=== PATIENT | male | born 1970 ===

== ENCOUNTER 2017-05-28 11:33 | Emergency (ER) | payer BC ==
[2017-05-28 11:33] VITALS: BMI 29.0
[2017-05-28 11:42] VITALS: TEMP 97.9
--- NOTE | 2017-05-28 13:03 | ED PDOC ---
HPI: Chest Pain Time Seen by Provider: 05/28/17 12:10 Chief Complaint (Nursing): Chest Pain Chief Complaint (Provider): Chest Pain History Per: Patient History/Exam Limitations: no limitations Onset/Duration Of Symptoms: Days (x1) Current Symptoms Are (Timing): Still Present Associated Symptoms: Other (lightheaded and dizzy) Additional Complaint(s): Preston Fournier is a 46 year old male, with a past medical history of of back surgery, who was brought to the emergency department for chest pain associated with lightheadedness, and dizziness onset today. During the stress test patient got dizzy, lightheaded, weak and began c/o of chest pain. Patient was apparently given nitro but his blood pressure dropped right after. No further medical complaints. PMD: Nasim Anne Past Medical History Reviewed: Historical Data, Nursing Documentation, Vital Signs Vital Signs: Last Vital Signs Temp 97.9 F 05/28/17 11:41 Pulse 66 05/28/17 13:09 Resp 16 05/28/17 13:09 BP 106/57 L 05/28/17 13:09 Pulse Ox 100 05/28/17 14:41 - Medical History PMH: Anxiety, Hypercholesterolemia, Migraine - Family History Family History: States: Unknown Family Hx - Social History Current smoker - smoking cessation education provided: No Alcohol: None Drugs: Denies - Immunization History Hx Tetanus Toxoid Vaccination: No Hx Influenza Vaccination: No Hx Pneumococcal Vaccination: No - Home Medications Home Medications: Ambulatory Orders Medication Instructions Recorded Calcium Carbonate/Vitamin D3 1 tab PO BID 05/28/17 [Calcium 500-Vit D3 400 Tablet] Ergocalciferol (Vitamin D2) 50,000 unit PO QWK 05/28/17 [Vitamin D2] [id number]-1-[id number] Ethyl Esters 1 GM 1 gm PO QID 05/28/17 [Lovaza] Pregabalin [Lyrica] 150 mg PO BID 05/28/17 - Allergies Allergies/Adverse Reactions: Allergies Allergy/AdvReac Type Severity Reaction Status Date / Time acetaminophen [From Percocet] Allergy NAUSEA Verified 05/28/17 11:37 oxycodone HCl [From Percocet] Allergy NAUSEA Verified 05/28/17 11:37 Review of Systems ROS Statement: Except As Marked, All Systems Reviewed And Found Negative Constitutional: Positive for: Weakness Cardiovascular: Positive for: Chest Pain, Light Headedness Neurological: Positive for: Dizziness Physical Exam - Reviewed Nursing Documentation Reviewed: Yes Vital Signs Reviewed: Yes - Physical Exam Appears: Positive for: Non-toxic, Uncomfortable Head Exam: Positive for: ATRAUMATIC, NORMAL INSPECTION, NORMOCEPHALIC Skin: Positive for: Normal Color, Warm, Dry Eye Exam: Positive for: EOMI, Normal appearance, PERRL Neck: Positive for: Normal, Painless ROM, Supple Cardiovascular/Chest: Positive for: Regular Rate, Rhythm. Negative for: Murmur Respiratory: Positive for: Normal Breath Sounds. Negative for: Respiratory Distress Gastrointestinal/Abdominal: Positive for: Normal Exam, Bowel Sounds, Soft. Negative for: Tenderness, Guarding, Rebound Back: Positive for: Normal Inspection. Negative for: L CVA Tenderness, R CVA Tenderness Extremity: Positive for: Normal ROM. Negative for: Pedal Edema, Deformity, Swelling Neurologic/Psych: Positive for: Alert, Oriented. Negative for: Motor/Sensory Deficits - Laboratory Results Result Diagrams: 05/28/17 11:40 05/28/17 11:40 - ECG ECG Rhythm: Positive for: Left Bundle Branch Block O2 Sat by Pulse Oximetry: 100 (RA) Pulse Ox Interpretation: Normal Medical Decision Making Medical Decision Making: Initial Impression: Chest Pain. rule out: ACS. Initial Plan: --Comp Metabolic Panel --Troponin I --Cardiology consult routine --CBC w/ differential --PTT --Chest portable [RAD] --Xanax 0.5 mg PO --reevaluation 1222 -Called Dr. Anne 1225 -Dr. Anne accepting patient and wants to give Xanax 1304 -Spoke to Dr. Reyes, who wanted to stop giving the Xanax. According to him, patient is being transferred to [facility] for cath at 1600 Scribe Attestation: Documented by Khris Zhong, acting as a scribe for Dung Lucas MD Provider Scribe Attestation: All medical record entries made by the Scribe were at my direction and personally dictated by me. I have reviewed the chart and agree that the record accurately reflects my personal performance of the history, physical exam, medical decision making, and the department course for this patient. I have also personally directed, reviewed, and agree with the discharge instructions and disposition. Time: 14:00 Gwen agreed to transfer to [place]. Dr. Wilils will be his doctor there. Scribe Attestation: Documented by Caleb Craig acting as a scribe for Dung Lucas MD. Scribe Attestation: All medical record entries made by the Scribe were at my direction and personally dictated by me. I have reviewed the chart and agree that the record accurately reflects my personal performance of the history, physical exam, medical decision making, and the department course for this patient. I have also personally directed, reviewed, and agree with the discharge instructions and disposition.
[2017-05-28 13:04] LABS: ALB/GLOB RATIO 1.3 (1.0-2.1); ALKALINE PHOSPHATASE 72 U/L (38-126); ALT/SGPT 48 U/L (21-72); AST/SGOT 26 U/L (17-59); BILIRUBIN,TOTAL 1.2 mg/dl (0.2-1.3); BLOOD UREA NITROGEN 13 mg/dl (9-20); CALCIUM 8.7 mg/dL (8.4-10.2); CARBON DIOXIDE 25 mmol/L (22-30); CHLORIDE 106 mmol/L (98-107); GFR AFRICAN-AMERICAN > 60; GLUCOSE,RANDOM 85 mg/dL (75-110); POTASSIUM 3.8 MMOL/L (3.6-5.0); SODIUM 142 mmol/l (132-148); TOTAL PROTEIN 7.7 G/DL (6.3-8.2)
[2017-05-28 13:07] LABS: BASO # 0.1 K/uL (0.0-0.2); BASO % 0.7 % (0.0-2.0); EOS # 0.2 K/uL (0.0-0.7); EOS % 1.8 % (0.0-4.0); HEMATOCRIT 42.1 % (35.0-51.0); LYMPH # 2.1 K/uL (1.0-4.3); LYMPH % 24.1 % (20.0-40.0); MEAN CELL VOLUME 89.8 fl (80.0-94.0); MEAN CORPUSCULAR HGB CONC 34.5 g/dL (33.0-37.0); MEAN PLATELET VOLUME 10.2 fl (7.2-11.7); MONO # 0.7 K/uL (0.0-0.8); MONO % 8.6 % (0.0-10.0); NEUT # 5.5 K/uL (1.8-7.0); NEUT % 64.8 % (50.0-75.0); NRBC % 0.1 % (0.0-0.0); RED CELL DISTRIBUTION WIDTH 19.2 % (11.5-14.5); WHITE BLOOD COUNT 8.5 K/uL (4.8-10.8)
[2017-05-28 13:10] VITALS: PULSE 66
--- NOTE | 2017-05-28 14:48 | RAD ---
HISTORY: chest pain COMPARISON: No prior. FINDINGS: LUNGS: No active pulmonary disease. PLEURA: No significant pleural effusion identified, no pneumothorax apparent. CARDIOVASCULAR: Normal. OSSEOUS STRUCTURES: No significant abnormalities. VISUALIZED UPPER ABDOMEN: Normal. OTHER FINDINGS: None. IMPRESSION: No acute cardiopulmonary disease appreciated.
[2017-05-28 15:51] VITALS: BP 102/63; RESP 18; O2SAT 98
== END 2017-05-28 14:50 | disposition short-term general hospital (02) ==
LOC: H.ER 11:33 → H.ERHOLD 12:23 → UNDOADMOB 12:23 → H.ER 14:50
DX: R07.89 Other chest pain (principal); E78.00 Pure hypercholesterolemia, unspecified; F41.9 Anxiety disorder, unspecified; Z88.5 Allergy status to narcotic agent; R42 Dizziness and giddiness

== ENCOUNTER 2017-08-16 13:24 | Emergency (ER) | payer BC ==
[2017-08-16 13:24] VITALS: BMI 29.0
[2017-08-16 13:39] VITALS: BP 111/71; PULSE 92; RESP 18; TEMP 99.3; O2SAT 96
--- NOTE | 2017-08-16 13:59 | ED PDOC ---
HPI: General Adult Time Seen by Provider: 08/16/17 13:46 Chief Complaint (Nursing): Flu-like Symptoms History Per: Patient Onset/Duration Of Symptoms: Days (2) Current Symptoms Are (Timing): Still Present Severity: Moderate Additional Complaint(s): Fever cough sore throat and body aches x 2 days. No SOB. Past Medical History Vital Signs: Last Vital Signs Temp 99.3 F 08/16/17 13:36 Pulse 92 H 08/16/17 13:36 Resp 18 08/16/17 13:36 BP 111/71 08/16/17 13:36 Pulse Ox 96 08/16/17 13:36 - Medical History PMH: Anxiety, Hypercholesterolemia, Migraine - Family History Family History: States: Unknown Family Hx - Immunization History Hx Tetanus Toxoid Vaccination: No Hx Influenza Vaccination: No Hx Pneumococcal Vaccination: No - Home Medications Home Medications: Ambulatory Orders Medication Instructions Recorded Calcium Carbonate/Vitamin D3 1 tab PO BID 05/28/17 [Calcium 500-Vit D3 400 Tablet] Ergocalciferol (Vitamin D2) 50,000 unit PO QWK 05/28/17 [Vitamin D2] Hmqzv-3-Xkyk Ethyl Esters 1 GM 1 gm PO QID 05/28/17 [Lovaza] Pregabalin [Lyrica] 150 mg PO BID 05/28/17 Albuterol HFA [Ventolin HFA 90 2 puff IH Q4H #1 puff 08/16/17 mcg/actuation (8 g)] Oseltamivir [Tamiflu] 75 mg PO BID #10 cap 08/16/17 - Allergies Allergies/Adverse Reactions: Allergies Allergy/AdvReac Type Severity Reaction Status Date / Time acetaminophen [From Percocet] Allergy NAUSEA Verified 05/28/17 11:37 oxycodone HCl [From Percocet] Allergy NAUSEA Verified 05/28/17 11:37 Review of Systems Constitutional: Positive for: Fever ENT: Positive for: Throat Pain Respiratory: Positive for: Cough Physical Exam - Physical Exam Appears: Positive for: Non-toxic, No Acute Distress Skin: Positive for: Normal Color, Warm, DRY ENT: Negative for: Tonsillar Exudate, Tonsillar Swelling Cardiovascular/Chest: Positive for: Regular Rate, Rhythm Respiratory: Positive for: Normal Breath Sounds. Negative for: Wheezing, Respiratory Distress Extremity: Negative for: Pedal Edema, Calf Tenderness, Swelling - ECG O2 Sat by Pulse Oximetry: 96 Disposition - Clinical Impression Clinical Impression: Influenza-like symptoms - Patient ED Disposition Is Patient to be Admitted: No - Disposition Referrals: Nasim Anne MD [Staff Provider] - Disposition: Routine/Home Disposition Time: 14:00 Condition: FAIR Prescriptions: Albuterol HFA [Ventolin HFA 90 mcg/actuation (8 g)] 2 puff IH Q4H #1 puff Oseltamivir [Tamiflu] 75 mg PO BID #10 cap Instructions: Flu, Adult (DC)
== END 2017-08-16 15:26 | disposition home or self-care (01) ==
LOC: H.ER 13:24
DX: J11.1 Influenza due to unidentified influenza virus with other respiratory manifestations (principal)

== ENCOUNTER 2017-08-21 15:01 | Observation (INO) | payer BC ==
[2017-08-21 15:01] VITALS: BMI 29.0
--- NOTE | 2017-08-21 16:02 | ED PDOC ---
HPI: Chest Pain Chief Complaint (Nursing): Chest Pain Chief Complaint (Provider): chest pain History Per: Patient History/Exam Limitations: no limitations Onset/Duration Of Symptoms: Days (3) Current Symptoms Are (Timing): Still Present Pain Scale Rating Of: 8 Quality: Pressure Associated Symptoms: Dyspnea Modifying Factors: None Exacerbating Factors: Deep Breathing Alleviating Factors: None Additional Complaint(s): 46 yo ,m, PMhx/o HLD, migraine, back surgery, anxiety, "Cardiac bridge" as per patient is brought to ED by ambulance c/o chest pain started 3 days ago, central pressure like, 8/9 intensity, not radiated, worse on deep inspiration, not alleviated factors, associated with persistent dry cough for the last 5 days , and SOB today. He denies fever, myalgia, chills, nausea,diarrhea, orthopnea, PND, pedal edema. . Reports 1 non- bloddy vomiting today. Pt was evaluated in ED 5 days ago for flu-like symptoms and discharged home with tamiflu and Ventolin. He reports that he finished treatment today with tamiflu, but for worsening of symptoms he went to see his PMD Dr Anne. He was given Aspirin 4 tabs on the office and was sent to Ed by ambulance. On evaluation pt with reproducible chest pain and persistent cough. O2 sat 98 PMD: Dr Anne - Risk Factors PE Risk Factors: Neg: Extremity Immobilization/Fx Past Medical History Vital Signs: Last Vital Signs Temp 97.7 F 08/21/17 15:04 Pulse 71 08/21/17 19:44 Resp 16 08/21/17 19:44 BP 112/72 08/21/17 19:44 Pulse Ox 98 08/21/17 20:02 - Medical History PMH: Anxiety, Hypercholesterolemia, Migraine - Family History Family History: States: Unknown Family Hx - Social History Current smoker - smoking cessation education provided: No Alcohol: None Drugs: Denies - Immunization History Hx Tetanus Toxoid Vaccination: No Hx Influenza Vaccination: No Hx Pneumococcal Vaccination: No - Home Medications Home Medications: Ambulatory Orders Medication Instructions Recorded Calcium Carbonate/Vitamin D3 1 tab PO BID 05/28/17 [Calcium 500-Vit D3 400 Tablet] Ergocalciferol (Vitamin D2) 50,000 unit PO QWK 05/28/17 [Vitamin D2] Mgelv-8-Nbzc Ethyl Esters 1 GM 1 gm PO QID 05/28/17 [Lovaza] Pregabalin [Lyrica] 150 mg PO BID 05/28/17 Albuterol HFA [Ventolin HFA 90 2 puff IH Q4H #1 puff 08/16/17 mcg/actuation (8 g)] Aspirin [Ecotrin] 81 mg PO DAILY 08/21/17 - Allergies Allergies/Adverse Reactions: Allergies Allergy/AdvReac Type Severity Reaction Status Date / Time oxycodone HCl [From Percocet] Allergy NAUSEA Verified 08/21/17 15:10 JACOBY Risk Score for UA/NSTEMI - JACOBY Risk Score Age > 64: NO 3 or more CAD Risk Factors: NO Known CAD (Stenosis greater than 50%): NO Aspirin use in past 7 days: YES Severe Angina: NO EKG ST changes greater than 0.5mm: NO Positive Cardiac Marker: NO JACOBY Score: 1 Risk %: 5% Curb-65 Severity Score - CURB-65 Severity Score Confusion: No Respiratory Rate greater than/equal to 30: No Systolic BP <90 or Diastolic BP less than/equal 60mmHg: No Age >64: No Curb-65 Score: 0 Percentage 30-day mortality: 0.6% Wells Criteria for PE - Wells Criteria for Pulmonary Embolism Clinical Signs and Symptoms of DVT: No P.E is #1 Diagnosis, or Equally Likely: No Heart Rate >100: No Immobilization at least 3 days;Surgery previous 4 weeks: No Previous, objectively diagnosed PE or DVT: No Hemoptysis: No Malignancy w/treatment within 6 months, or palliative: No Total Score: 0 Review of Systems Cardiovascular: Positive for: Chest Pain Respiratory: Positive for: Cough, Shortness of Breath. Negative for: Wheezing Gastrointestinal: Negative for: Nausea, Vomiting Physical Exam - Physical Exam Appears: Positive for: No Acute Distress Head Exam: Positive for: ATRAUMATIC, NORMOCEPHALIC Skin: Positive for: Normal Color Cardiovascular/Chest: Positive for: Regular Rate, Rhythm Respiratory: Positive for: Normal Breath Sounds. Negative for: Crackles, Rales , Rhonchi, Wheezing, Plerual Rub Gastrointestinal/Abdominal: Positive for: Soft. Negative for: Tenderness, Distended, Guarding, Rebound Extremity: Positive for: Normal ROM. Negative for: Tenderness, Pedal Edema Neurologic/Psych: Positive for: Alert, Oriented - Laboratory Results Result Diagrams: 08/21/17 16:35 08/21/17 16:35 - ECG O2 Sat by Pulse Oximetry: 98 Medical Decision Making Medical Decision Making: initial Impression Chest pain reproducible. Costochondritis Influenza Differential ACS, Unstable angina, PE, Acute pericarditis. Plan CBC, CMP, troponin Aspirin given 4 tab (320 mg before coming hospital) EKG: showed LBBB. patient had LBBB showed in myocardial perfusion scan 05/2017, possible chronic. Myocardial perfusion scan 05/2017 reports: Large sized sev intensity partially reversible anteroseptal defect accompanied with new LBBB Coronary cath 05/2017 neg CXR Toradol 30 mg IV 19:00 Patient reports that pain has not resolved complete. Pt has allergy to Percocet labs reviewed, troponin I neg, CXR no active pulmonar disease. Disposition - Clinical Impression Clinical Impression: Acute chest pain - Patient ED Disposition Is Patient to be Admitted: Yes - Disposition Disposition Time: 19:40 Condition: FAIR Forms: [employer] (Dominican)
[2017-08-21 16:52] LABS: BASO # 0.1 K/uL (0.0-0.2); EOS # 0.2 K/uL (0.0-0.7); EOS % 2.8 % (0.0-4.0); HEMOGLOBIN 13.9 g/dL (12.0-18.0); LYMPH # 2.4 K/uL (1.0-4.3); MEAN CELL VOLUME 87.9 fl (80.0-94.0); MEAN CORPUSCULAR HEMOGLOBIN 32.3 pg (27.0-31.0); MEAN CORPUSCULAR HGB CONC 36.8 g/dL (33.0-37.0); MEAN PLATELET VOLUME 9.3 fl (7.2-11.7); MONO # 0.8 K/uL (0.0-0.8); MONO % 9.6 % (0.0-10.0); NEUT % 58.6 % (50.0-75.0); NRBC % 0.1 % (0.0-0.0); RBC 4.3 Mil/uL (4.40-5.90); WHITE BLOOD COUNT 8.6 K/uL (4.8-10.8)
[2017-08-21 17:01] LABS: ALB/GLOB RATIO 1.1 (1.0-2.1); ALBUMIN 4.2 g/dL (3.5-5.0); CALCIUM 8.8 mg/dL (8.4-10.2); GFR AFRICAN-AMERICAN > 60; GFR NON-AFRICAN AMERICAN > 60
[2017-08-21 17:04] LABS: INR 1.1 (0.9-1.2); PARTIAL THROMBOPLASTIN TIME 25.2 Seconds (25.6-37.1); PROTHROMBIN TIME 11.9 Seconds (9.8-13.1)
[2017-08-21 17:10] LABS: ALT/SGPT 32 U/L (21-72); AST/SGOT 35 U/L (17-59); BLOOD UREA NITROGEN 18 mg/dl (9-20)
--- NOTE | 2017-08-21 18:18 | RAD ---
HISTORY: chest pain. SOB COMPARISON: Chest x-ray performed 05/28/17 TECHNIQUE: Chest PA and lateral FINDINGS: Examination limited by habitus. LUNGS: No focal consolidation. Please note that chest x-ray has limited sensitivity for the detection of pulmonary masses. PLEURA: No significant pleural effusion identified. No definite pneumothorax . CARDIOVASCULAR: Heart size appears top-normal. OSSEOUS STRUCTURES: No acute osseous abnormality identified. VISUALIZED UPPER ABDOMEN: Right upper quadrant surgical clips. OTHER FINDINGS: None. IMPRESSION: No acute findings identified. See above.
[2017-08-21] MEDS ORDERED: Albuterol-Ipratrop 3 mg / 0.5 (3 ml) UD INH STA (19:38)
[2017-08-21] MEDS ORDERED: Albuterol-Ipratrop 3 mg / 0.5 (3 ml) UD ONE (20:04)
[2017-08-22] MEDS: Omega-3-Acid Ethyl Esters 1 GM Cap PO SCH ×2 (08:33→16:52)
[2017-08-22] MEDS: Enoxaparin 40 mg Syringe SC SCH (08:33)
[2017-08-22] MEDS: Albuterol HFA 90 mcg/actuation (8 g) IH PRN ×2 (08:35→22:29)
[2017-08-22] MEDS: guaiFENesin-Codeine 100-10mg/5ml Syrup (5 ml) UD PO PRN ×2 (08:39→21:38)
--- NOTE | 2017-08-22 11:34 | CT ---
PROCEDURE: CT Chest without contrast HISTORY: cough pain COMPARISON: None. TECHNIQUE: Contiguous axial images were obtained through the chest without intravenous contrast enhancement. Sagittal and coronal reconstructions were performed. Radiation dose (DLP): 557.32 mGy-cm. This CT exam was performed using one or more of the following dose reduction techniques: Automated exposure control, adjustment of the mA and/or kV according to patient size, and/or use of iterative reconstruction technique. FINDINGS: LUNGS: Clear lungs. Visualized airway clear. MEDIASTINUM: Unremarkable thoracic aorta. No aneurysm. Normal sized heart. Main pulmonary artery unremarkable. No vascular congestion. No lymphadenopathy. PLEURA: No pleural fluid. No pneumothorax. BONES: No fracture. No destructive lesion. UPPER ABDOMEN: Mild splenomegaly. Status post cholecystectomy. OTHER FINDINGS: None. IMPRESSION: No pulmonary infiltrate. Mild splenomegaly. The remainder of the examination is unremarkable.
--- NOTE | 2017-08-22 13:20 | CP.PCM.HP ---
History of Present Illness - History of Present Illness History of Present Illness: 46 yo ,m, with hx of back surgery with chronic pain on lyrica. Patient c/o severe precordial pain. He recently had a comprehensive cardiac w/u. Few days before this admission he was treated for viral syndrome and bronchitis. His condition did not improve and he was transfer to ER for further evaluation On evaluation pt with reproducible chest pain and persistent cough. Present on Admission - Present on Admission Any Indicators Present on Admission: No Review of Systems - Constitutional Constitutional: Headache - EENT Eyes: As Per HPI - Cardiovascular Cardiovascular: Chest Pain - Respiratory Respiratory: Cough - Gastrointestinal Gastrointestinal: As Per HPI - Musculoskeletal Musculoskeletal: Myalgias - Integumentary Integumentary: As Per HPI - Neurological Neurological: As Per HPI - Psychiatric Psychiatric: Anxiety Past Patient History - Past Medical History & Family History Past Medical History?: Yes - Past Social History Smoking Status: Former Smoker - CARDIAC Hx Hypercholesterolemia: Yes - NEUROLOGICAL Hx Migraine: Yes - RENAL Hx Chronic Kidney Disease: No - ENDOCRINE/METABOLIC Hx Endocrine Disorders: No - HEMATOLOGICAL/ONCOLOGICAL Hx Blood Disorders: No - MUSCULOSKELETAL/RHEUMATOLOGICAL Hx Falls: No - GASTROINTESTINAL Hx Gastrointestinal Disorders: No - GENITOURINARY/GYNECOLOGICAL Hx Genitourinary Disorders: No - PSYCHIATRIC Hx Psychophysiologic Disorder: No Hx Substance Use: No - SURGICAL HISTORY Hx Surgeries: Yes Hx Cardiac Catheterization: Yes Other/Comment: left shoulder torn ligament & tendon surgery - ANESTHESIA Hx Anesthesia: Yes Hx Anesthesia Reactions: No Meds Allergies/Adverse Reactions: Allergies Allergy/AdvReac Type Severity Reaction Status Date / Time oxycodone HCl [From Percocet] Allergy NAUSEA Verified 08/21/17 15:10 Physical Exam - Constitutional Additional comments: anxious - Head Exam Head Exam: ATRAUMATIC, NORMAL INSPECTION, NORMOCEPHALIC - Eye Exam Eye Exam: Normal appearance - ENT Exam ENT Exam: Mucous Membranes Moist - Neck Exam Neck exam: Positive for: Full Rom - Respiratory Exam Respiratory Exam: Clear to Auscultation Bilateral Additional comments: reproducible CP at palpation of the costochondral area. - Cardiovascular Exam Cardiovascular Exam: REGULAR RHYTHM, +S1, +S2 - GI/Abdominal Exam GI & Abdominal Exam: Normal Bowel Sounds - Extremities Exam Extremities exam: Positive for: normal inspection - Neurological Exam Neurological exam: Alert, CN II-XII Intact, Normal Gait, Oriented x3, Reflexes Normal - Psychiatric Exam Psychiatric exam: Anxious - Skin Skin Exam: Normal Color Results - Vital Signs Recent Vital Signs: Last Vital Signs Temp 97.5 F L 08/22/17 11:43 Pulse 67 08/22/17 11:43 Resp 18 08/22/17 11:43 BP 111/73 08/22/17 11:43 Pulse Ox 95 08/22/17 11:43 - Labs Result Diagrams: 08/21/17 16:35 08/21/17 16:35 Labs: Laboratory Results - last 24 hr 08/21/17 08/21/17 08/21/17 16:35 16:35 16:35 WBC 8.6 RBC 4.30 L Hgb 13.9 Hct 37.8 MCV 87.9 MCH 32.3 H MCHC 36.8 RDW 19.0 H Plt Count 229 MPV 9.3 Neut % (Auto) 58.6 Lymph % (Auto) 28.0 Izard % (Auto) 9.6 Eos % (Auto) 2.8 Baso % (Auto) 1.0 Neut # (Auto) 5.0 Lymph # (Auto) 2.4 Izard # (Auto) 0.8 Eos # (Auto) 0.2 Baso # (Auto) 0.1 PT 11.9 INR 1.1 APTT 25.2 L Sodium 141 Potassium 4.1 Chloride 107 Carbon Dioxide 21 L Anion Gap 17 BUN 18 Creatinine 1.0 Est GFR ( Amer) > 60 Est GFR (Non-Af Amer) > 60 Random Glucose 82 Calcium 8.8 Total Bilirubin 1.8 H AST 35 ALT 32 Alkaline Phosphatase 82 Troponin I Total Protein 7.9 Albumin 4.2 Globulin 3.7 Albumin/Globulin Ratio 1.1 08/21/17 08/22/17 08/22/17 18:35 05:55 12:00 WBC RBC Hgb Hct MCV MCH MCHC RDW Plt Count MPV Neut % (Auto) Lymph % (Auto) Izard % (Auto) Eos % (Auto) Baso % (Auto) Neut # (Auto) Lymph # (Auto) Izard # (Auto) Eos # (Auto) Baso # (Auto) PT INR APTT Sodium Potassium Chloride Carbon Dioxide Anion Gap BUN Creatinine Est GFR ( Amer) Est GFR (Non-Af Amer) Random Glucose Calcium Total Bilirubin AST ALT Alkaline Phosphatase Troponin I < 0.0120 < 0.0120 < 0.0120 Total Protein Albumin Globulin Albumin/Globulin Ratio Assessment & Plan (1) Costochondral chest pain Status: Acute (2) Anxiety Status: Acute (3) Myalgia Status: Acute (4) Myalgia Status: Acute (5) Chest pain Status: Acute - Assessment and Plan (Free Text) Plan: As pre orders
[2017-08-22] MEDS ORDERED: Albuterol-Ipratrop 3 mg / 0.5 (3 ml) UD INH PRN (13:45)
[2017-08-22] MEDS: Tiotropium 18 mcg Cap For Inhalation IH SCH (14:05)
[2017-08-22] MEDS: Pantoprazole 40 mg EC Tab PO SCH (14:22)
[2017-08-22 15:24] LABS: SQUAMOUS EPITHIAL < 1 /hpf (0-5); URINE BILIRUBIN NEGATIVE (NEGATIVE); URINE BLOOD NEGATIVE (NEGATIVE); URINE CLARITY CLEAR (Clear); URINE COLOR YELLOW (YELLOW); URINE GLUCOSE (UA) NEG (Normal); URINE LEUKOCYTE ESTERASE NEG Leu/uL (Negative); URINE NITRATE NEGATIVE (NEGATIVE); URINE PROTEIN NEGATIVE (NEGATIVE)
[2017-08-22] MEDS: Albuterol-Ipratrop 3 mg / 0.5 (3 ml) UD INH SCH ×2 (16:01→19:56)
[2017-08-22] MEDS: Calcium-Vit D 500 mg-200 Units Tab UD PO SCH ×2 (16:55→21:32)
[2017-08-22] MEDS: Metoprolol Succinate 25 mg XL Tab PO SCH (16:55)
--- NOTE | 2017-08-22 18:29 | CARD ---
APPROVED REPORT EKG Measurement Heart [id number] <Conclusion> Normal sinus rhythm Septal infarct, age undetermined Abnormal ECG
[2017-08-22 21:46] LABS: HEPATITIS B SURFACE AG Negative (NEGATIVE)
[2017-08-22 21:51] LABS: HEPATITIS A IGM NEGATIVE (NEGATIVE); HEPATITIS B CORE AB NEGATIVE (NEGATIVE)
[2017-08-22 22:03] LABS: HEPATITIS C ANTIBODY NEGATIVE (NEGATIVE)
[2017-08-23] MEDS: Albuterol-Ipratrop 3 mg / 0.5 (3 ml) UD INH SCH ×3 (01:12→13:08)
--- NOTE | 2017-08-23 08:08 | CP.PCM.CON ---
History of Present Illness - History of Present Illness History of Present Illness: Asked to evaluate this 46 year old male who has had persistent non-productive cough and associated chest wall (costochondral) pain. His symptoms began 5 days ago and were associated with chills and sweats. He was unaware of fever, but his did have a viral illness preceding his symptoms. He denied sore throat or voice change, no earache, + occasional runny nose. No audible wheezing, but + dyspnea associated with the cough and pain. He denies any prior history of sinus disease, asthma, pneumonia, but there is a positive family history of asthma. He never smoked cigarettes and denied any work exposures to toxic chemicals or heavy dust environs. He has had multiple surgeries for lower back and shoulder related problems. 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 - HEENT Hx HEENT Problems: No - RENAL Hx Chronic Kidney Disease: No - ENDOCRINE/METABOLIC Hx Endocrine Disorders: No - HEMATOLOGICAL/ONCOLOGICAL Hx Blood Disorders: No - INTEGUMENTARY Hx Dermatological Problems: No - MUSCULOSKELETAL/RHEUMATOLOGICAL Hx Back Pain: Yes Hx Falls: No - GASTROINTESTINAL Hx Gastrointestinal Disorders: No - GENITOURINARY/GYNECOLOGICAL Hx Genitourinary Disorders: No - PSYCHIATRIC Hx Psychophysiologic Disorder: No Hx Substance Use: No - SURGICAL HISTORY Hx Surgeries: Yes Hx Cardiac Catheterization: Yes Hx Orthopedic Surgery: Yes (left shoulder and lumbar spine) Other/Comment: left shoulder torn ligament & tendon surgery, lumbar fusion? - ANESTHESIA Hx Anesthesia: Yes Hx Anesthesia Reactions: No Meds Allergies/Adverse Reactions: Allergies Allergy/AdvReac Type Severity Reaction Status Date / Time oxycodone HCl [From Percocet] Allergy NAUSEA Verified 08/21/17 15:10 - Medications Medications: Current Medications Albuterol (Ventolin Hfa 90 Mcg/Actuation (8 G)) 2 puff IH Q4H PRN PRN Reason: Shortness of Breath Last Admin: 08/22/17 22:29 Dose: 2 puff Albuterol/Ipratropium (Duoneb 3 Mg/0.5 Mg (3 Ml) Ud) 3 ml INH RQ6 [facility] Last Admin: 08/23/17 07:50 Dose: 3 ml Amlodipine Besylate (Norvasc) 2.5 mg PO DAILY [facility] Last Admin: 08/22/17 14:21 Dose: 2.5 mg Aspirin (Ecotrin) 81 mg PO DAILY [facility] Last Admin: 08/22/17 08:33 Dose: 81 mg Calcium/Vitamin D (Oyster Shell Calcium/Vitamin D 500 Mg-200 Iu) 1 tab PO BID [facility] Last Admin: 08/22/17 21:32 Dose: 1 tab Clonazepam (Klonopin) 0.5 mg PO BID [facility] Last Admin: 08/22/17 21:38 Dose: 0.5 mg Dexamethasone (Decadron) 4 mg PO Q12 [facility] Last Admin: 08/22/17 21:32 Dose: 4 mg Enoxaparin Sodium (Lovenox) 40 mg SC DAILY [facility] PRN Reason: Protocol Last Admin: 08/22/17 08:33 Dose: 40 mg Ergocalciferol (Drisdol 50,000 Intl Units Cap) 1 cap PO QWK [facility] Guaifenesin/Codeine Phosphate (Robitussin W/Codeine) 10 ml PO Q6 PRN PRN Reason: Cough Last Admin: 08/22/17 21:38 Dose: 10 ml Ibuprofen (Motrin Tab) 400 mg PO Q6 PRN PRN Reason: Pain, moderate (4-7) Last Admin: 08/23/17 03:37 Dose: 400 mg Metoprolol Succinate (Toprol Xl) 25 mg PO DAILY [facility] Last Admin: 08/22/17 16:55 Dose: 25 mg [id number] Ethyl Esters (Lovaza) 1 gm PO BID [facility] Last Admin: 08/22/17 16:52 Dose: 1 gm Pantoprazole Sodium (Protonix Ec Tab) 40 mg PO DAILY [facility] Last Admin: 08/22/17 14:22 Dose: 40 mg Pregabalin (Lyrica) 150 mg PO BID [facility] Last Admin: 08/22/17 16:54 Dose: 150 mg Tiotropium [place] (Spiriva) 18 mcg IH DAILY [facility] Last Admin: 08/22/17 14:05 Dose: 18 mcg Physical Exam - Additional Findings Additional findings: Well nourished and well developed. Not in acute distress at time of exam. Did have cough incited by rolling to his side during the exam. Nares are patent, no bleeding. Neck is supple and trachea midline. No visible JVD. No carotid bruit. No palpable abnormal lymphadenopthy. No rashes, no cyanosis, peripheral pulses intact, no ecchymosis. Pharynx mildly injected and congested posteriorly. No dullness on chest percussion, equal expansion. Exquisite tenderness to light palpation of the lower costo-chondal junctions bilaterally. No swelling or rash. Breath sounds well heard bilaterally, no rales, rhonchi or wheezes. No bronchial breath sounds or egophony, no rub. Heart sounds are well heard, regular rhythm, no murmur. Abdomen soft and non-tender with normal bowel sounds. No dependant edema, no calf tenderness. Results - Vital Signs Recent Vital Signs: Last Vital Signs Temp 97.5 F L 08/23/17 05:00 Pulse 73 08/23/17 05:00 Resp 16 08/23/17 05:00 BP 103/63 08/23/17 05:00 Pulse Ox 97 08/23/17 05:00 - Labs Result Diagrams: 08/21/17 16:35 08/21/17 16:35 Labs: Laboratory Results - last 24 hr 08/22/17 08/22/17 08/22/17 12:00 13:07 13:07 ESR POC Glucose (mg/dL) Alkaline Phosphatase 83 Total Creatine Kinase 102 Troponin I < 0.0120 Prostate Specific Ag 0.385 TSH 3rd Generation 1.10 Urine Color Urine Clarity Urine pH Ur Specific [place] Urine Protein Urine Glucose (UA) Urine Ketones Urine Blood Urine Nitrate Urine Bilirubin Urine Urobilinogen Ur Leukocyte Esterase Urine RBC (Auto) Urine Microscopic WBC Ur Squamous Epith Cells RPR Nonreactive Hepatitis A IgM Ab Hep Bs Antigen Hep B Core IgM Ab Hepatitis C Antibody HIV-1 Ab Rapid Screen 08/22/17 08/22/17 08/22/17 13:07 13:07 13:07 ESR 15 POC Glucose (mg/dL) Alkaline Phosphatase Total Creatine Kinase Troponin I Prostate Specific Ag TSH 3rd Generation Urine Color Urine Clarity Urine pH Ur Specific [place] Urine Protein Urine Glucose (UA) Urine Ketones Urine Blood Urine Nitrate Urine Bilirubin Urine Urobilinogen Ur Leukocyte Esterase Urine RBC (Auto) Urine Microscopic WBC Ur Squamous Epith Cells RPR Hepatitis A IgM Ab Negative Hep Bs Antigen Negative Hep B Core IgM Ab Negative Hepatitis C Antibody Negative HIV-1 Ab Rapid Screen Non reactive 08/22/17 08/22/17 15:06 20:40 ESR POC Glucose (mg/dL) 131 H Alkaline Phosphatase Total Creatine Kinase Troponin I Prostate Specific Ag TSH 3rd Generation Urine Color Yellow Urine Clarity Clear Urine pH 5.0 Ur Specific [place] 1.030 Urine Protein Negative Urine Glucose (UA) Neg Urine Ketones Negative Urine Blood Negative Urine Nitrate Negative Urine Bilirubin Negative Urine Urobilinogen 2.0 Ur Leukocyte Esterase Neg Urine RBC (Auto) < 1 Urine Microscopic WBC 1 Ur Squamous Epith Cells < 1 RPR Hepatitis A IgM Ab Hep Bs Antigen Hep B Core IgM Ab Hepatitis C Antibody HIV-1 Ab Rapid Screen Assessment & Plan (1) Cough Assessment and Plan: Underlying cause of this cough may be Asthma, posterior rhinorrhea or both in 50 % of patients who present this way. I would agree with treatment for bronchospasm at this time. I would also recommend stopping metoprolol if OK with cardiology. He would need a pulmonary function study with FeNO measurement when he is better. CT paranasal sinuses looking for occult sinusitis and ENT consult to check upper airways and signs of possible GERD. Status: Acute Priority: High (2) Costochondral chest pain Assessment and Plan: Secondary to persistent cough. If needed, injection of CC junctions. Status: Acute Priority: High - Date & Time Date: 08/23/17 Time: 08:18
[2017-08-23 08:13] VITALS: RESP 20
--- NOTE | 2017-08-23 08:44 | CP.PCM.CON ---
History of Present Illness - History of Present Illness History of Present Illness: 46 yo man presenting with sternal chest wall pain is referred for pain management. Work-up for ACS has largely been negative, plus patient has had recent cardiac work-up that was negative as well. Patient does have a history of chronic back pain s/p recent surgery to the lower back, however, he had only been taking Lyrica 150mg bid for neuropathic pain. Percocet makes him jittery and he likes to avoid medications in general. He developed chest wall pain after a coughing spell as part of his flu-like symptoms from a few days ago. He denies trauma or injuries to the area, but did state that he's had intermittent chest wall pain before, but nothing as severe as this. Many years ago he did have epigastric pain and that was attributed to gastritis. The pain is sharp, constant, present at rest but worse with breathing and movement. 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 - HEENT Hx HEENT Problems: No - RENAL Hx Chronic Kidney Disease: No - ENDOCRINE/METABOLIC Hx Endocrine Disorders: No - HEMATOLOGICAL/ONCOLOGICAL Hx Blood Disorders: No - INTEGUMENTARY Hx Dermatological Problems: No - MUSCULOSKELETAL/RHEUMATOLOGICAL Hx Back Pain: Yes Hx Falls: No - GASTROINTESTINAL Hx Gastrointestinal Disorders: No - GENITOURINARY/GYNECOLOGICAL Hx Genitourinary Disorders: No - PSYCHIATRIC Hx Psychophysiologic Disorder: No Hx Substance Use: No - SURGICAL HISTORY Hx Surgeries: Yes Hx Cardiac Catheterization: Yes Hx Orthopedic Surgery: Yes (left shoulder and lumbar spine) Other/Comment: left shoulder torn ligament & tendon surgery, lumbar fusion? - ANESTHESIA Hx Anesthesia: Yes Hx Anesthesia Reactions: No Meds Allergies/Adverse Reactions: Allergies Allergy/AdvReac Type Severity Reaction Status Date / Time oxycodone HCl [From Percocet] Allergy NAUSEA Verified 08/21/17 15:10 - Medications Medications: Current Medications Albuterol (Ventolin Hfa 90 Mcg/Actuation (8 G)) 2 puff IH Q4H PRN PRN Reason: Shortness of Breath Last Admin: 08/22/17 22:29 Dose: 2 puff Albuterol/Ipratropium (Duoneb 3 Mg/0.5 Mg (3 Ml) Ud) 3 ml INH RQ6 [facility] Last Admin: 08/23/17 07:50 Dose: 3 ml Amlodipine Besylate (Norvasc) 2.5 mg PO DAILY [facility] Last Admin: 08/22/17 14:21 Dose: 2.5 mg Aspirin (Ecotrin) 81 mg PO DAILY [facility] Last Admin: 08/22/17 08:33 Dose: 81 mg Calcium/Vitamin D (Oyster Shell Calcium/Vitamin D 500 Mg-200 Iu) 1 tab PO BID [facility] Last Admin: 08/22/17 21:32 Dose: 1 tab Clonazepam (Klonopin) 0.5 mg PO BID [facility] Last Admin: 08/22/17 21:38 Dose: 0.5 mg Dexamethasone (Decadron) 4 mg PO Q12 [facility] Last Admin: 08/22/17 21:32 Dose: 4 mg Enoxaparin Sodium (Lovenox) 40 mg SC DAILY [facility] PRN Reason: Protocol Last Admin: 08/22/17 08:33 Dose: 40 mg Ergocalciferol (Drisdol 50,000 Intl Units Cap) 1 cap PO QWK [facility] Guaifenesin/Codeine Phosphate (Robitussin W/Codeine) 10 ml PO Q6 PRN PRN Reason: Cough Last Admin: 08/22/17 21:38 Dose: 10 ml Ibuprofen (Motrin Tab) 400 mg PO Q6 PRN PRN Reason: Pain, moderate (4-7) Last Admin: 08/23/17 03:37 Dose: 400 mg Metoprolol Succinate (Toprol Xl) 25 mg PO DAILY [facility] Last Admin: 08/22/17 16:55 Dose: 25 mg [id number] Ethyl Esters (Lovaza) 1 gm PO BID [facility] Last Admin: 08/22/17 16:52 Dose: 1 gm Pantoprazole Sodium (Protonix Ec Tab) 40 mg PO DAILY [facility] Last Admin: 08/22/17 14:22 Dose: 40 mg Pregabalin (Lyrica) 150 mg PO BID [facility] Last Admin: 08/22/17 16:54 Dose: 150 mg Tiotropium [place] (Spiriva) 18 mcg IH DAILY [facility] Last Admin: 08/22/17 14:05 Dose: 18 mcg Physical Exam - Respiratory Exam Additional comments: TTP to lower sternum, no swelling or erythema observed. Maximal tenderness mostly over costosternal joints, but moderate pain over costachondral areas as well. No crepitus or step-off. Results - Vital Signs Recent Vital Signs: Last Vital Signs Temp 97.5 F L 08/23/17 08:00 Pulse 87 08/23/17 08:00 Resp 20 08/23/17 08:00 BP 111/62 08/23/17 08:00 Pulse Ox 96 08/23/17 08:00 - Labs Result Diagrams: 08/21/17 16:35 08/21/17 16:35 Labs: Laboratory Results - last 24 hr 08/22/17 08/22/17 08/22/17 12:00 13:07 13:07 ESR POC Glucose (mg/dL) Alkaline Phosphatase 83 Total Creatine Kinase 102 Troponin I < 0.0120 Prostate Specific Ag 0.385 TSH 3rd Generation 1.10 Urine Color Urine Clarity Urine pH Ur Specific [place] Urine Protein Urine Glucose (UA) Urine Ketones Urine Blood Urine Nitrate Urine Bilirubin Urine Urobilinogen Ur Leukocyte Esterase Urine RBC (Auto) Urine Microscopic WBC Ur Squamous Epith Cells RPR Nonreactive Hepatitis A IgM Ab Hep Bs Antigen Hep B Core IgM Ab Hepatitis C Antibody HIV-1 Ab Rapid Screen 08/22/17 08/22/17 08/22/17 13:07 13:07 13:07 ESR 15 POC Glucose (mg/dL) Alkaline Phosphatase Total Creatine Kinase Troponin I Prostate Specific Ag TSH 3rd Generation Urine Color Urine Clarity Urine pH Ur Specific [place] Urine Protein Urine Glucose (UA) Urine Ketones Urine Blood Urine Nitrate Urine Bilirubin Urine Urobilinogen Ur Leukocyte Esterase Urine RBC (Auto) Urine Microscopic WBC Ur Squamous Epith Cells RPR Hepatitis A IgM Ab Negative Hep Bs Antigen Negative Hep B Core IgM Ab Negative Hepatitis C Antibody Negative HIV-1 Ab Rapid Screen Non reactive 08/22/17 08/22/17 15:06 20:40 ESR POC Glucose (mg/dL) 131 H Alkaline Phosphatase Total Creatine Kinase Troponin I Prostate Specific Ag TSH 3rd Generation Urine Color Yellow Urine Clarity Clear Urine pH 5.0 Ur Specific [place] 1.030 Urine Protein Negative Urine Glucose (UA) Neg Urine Ketones Negative Urine Blood Negative Urine Nitrate Negative Urine Bilirubin Negative Urine Urobilinogen 2.0 Ur Leukocyte Esterase Neg Urine RBC (Auto) < 1 Urine Microscopic WBC 1 Ur Squamous Epith Cells < 1 RPR Hepatitis A IgM Ab Hep Bs Antigen Hep B Core IgM Ab Hepatitis C Antibody HIV-1 Ab Rapid Screen Assessment & Plan (1) Costochondral chest pain Assessment and Plan: 46 yo man w/ chest wall pain, probable costochondritis, as ACS workup negative and pain is reproducible. CT negative for chest wall pathologies. No appreciable swelling, less likely Tietze Syndrome. - continue Lyrica - add Cymbalta to regimen - alternatve between Voltaren gel and Lidoderm patch to the area - add PO NSAIDs to regimen - outpatient follow-up for possible injection if necessary, condition is usually self-resolving Status: Acute Priority: High
[2017-08-23] MEDS ORDERED: Lidocaine 5% Patch TD SCH (09:00)
[2017-08-23] MEDS: Enoxaparin 40 mg Syringe SC SCH (09:33)
[2017-08-23] MEDS: Tiotropium 18 mcg Cap For Inhalation IH SCH (09:33)
[2017-08-23] MEDS: Metoprolol Succinate 25 mg XL Tab PO SCH ×2 (09:34→09:38)
[2017-08-23] MEDS: Omega-3-Acid Ethyl Esters 1 GM Cap PO SCH ×2 (09:35→17:43)
[2017-08-23] MEDS: Calcium-Vit D 500 mg-200 Units Tab UD PO SCH ×2 (09:37→17:44)
[2017-08-23] MEDS: Pantoprazole 40 mg EC Tab PO SCH (09:37)
[2017-08-23] MEDS: guaiFENesin-Codeine 100-10mg/5ml Syrup (5 ml) UD PO PRN (12:43)
--- NOTE | 2017-08-23 16:37 | CP.PCM.CON ---
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 - HEENT Hx HEENT Problems: No - RENAL Hx Chronic Kidney Disease: No - ENDOCRINE/METABOLIC Hx Endocrine Disorders: No - HEMATOLOGICAL/ONCOLOGICAL Hx Blood Disorders: No - INTEGUMENTARY Hx Dermatological Problems: No - MUSCULOSKELETAL/RHEUMATOLOGICAL Hx Back Pain: Yes Hx Falls: No - GASTROINTESTINAL Hx Gastrointestinal Disorders: No - GENITOURINARY/GYNECOLOGICAL Hx Genitourinary Disorders: No - PSYCHIATRIC Hx Psychophysiologic Disorder: No Hx Substance Use: No - SURGICAL HISTORY Hx Surgeries: Yes Hx Cardiac Catheterization: Yes Hx Orthopedic Surgery: Yes (left shoulder and lumbar spine) Other/Comment: left shoulder torn ligament & tendon surgery, lumbar fusion? - ANESTHESIA Hx Anesthesia: Yes Hx Anesthesia Reactions: No Meds Home Medications: Home Medication List Medication Instructions Recorded Confirmed Type Albuterol/Ipratropium [Duoneb 3 3 ml INH RQ6 neb 08/23/17 Rx mg/0.5 mg (3 ml) UD] Dexamethasone [Decadron] 4 mg PO DAILY #4 tab 08/23/17 Rx Ergocalciferol [Drisdol 50,000 1 cap PO QWK cap 08/23/17 Rx Intl Units Cap] Ibuprofen [Motrin Tab] 800 mg PO Q8 tab 08/23/17 Rx Pantoprazole [Protonix EC Tab] 40 mg PO DAILY ect 08/23/17 Rx amLODIPine [Norvasc] 2.5 mg PO DAILY tab 08/23/17 Rx clonazePAM [Klonopin] 0.5 mg PO DAILY #10 tab 08/23/17 Rx guaiFENesin/Codeine [Robitussin 10 ml PO Q6 PRN udc 08/23/17 Rx w/Codeine] Allergies/Adverse Reactions: Allergies Allergy/AdvReac Type Severity Reaction Status Date / Time oxycodone HCl [From Percocet] Allergy NAUSEA Verified 08/21/17 15:10 - Medications Medications: Current Medications Albuterol (Ventolin Hfa 90 Mcg/Actuation (8 G)) 2 puff IH Q4H PRN PRN Reason: Shortness of Breath Last Admin: 08/22/17 22:29 Dose: 2 puff Albuterol/Ipratropium (Duoneb 3 Mg/0.5 Mg (3 Ml) Ud) 3 ml INH RQ6 [facility] Last Admin: 08/23/17 13:08 Dose: 3 ml Amlodipine Besylate (Norvasc) 2.5 mg PO DAILY [facility] Last Admin: 08/23/17 09:36 Dose: 2.5 mg Aspirin (Ecotrin) 81 mg PO DAILY [facility] Last Admin: 08/23/17 09:36 Dose: 81 mg Calcium/Vitamin D (Oyster Shell Calcium/Vitamin D 500 Mg-200 Iu) 1 tab PO BID [facility] Last Admin: 08/23/17 09:37 Dose: 1 tab Clonazepam (Klonopin) 0.5 mg PO BID [facility] Last Admin: 08/23/17 09:41 Dose: 0.5 mg Dexamethasone (Decadron) 4 mg PO Q12 [facility] Last Admin: 08/23/17 09:35 Dose: 4 mg Duloxetine HCl (Cymbalta) 30 mg PO DAILY [facility] Last Admin: 08/23/17 09:36 Dose: 30 mg Enoxaparin Sodium (Lovenox) 40 mg SC DAILY [facility] PRN Reason: Protocol Last Admin: 08/23/17 09:33 Dose: 40 mg Ergocalciferol (Drisdol 50,000 Intl Units Cap) 1 cap PO QWK [facility] Guaifenesin/Codeine Phosphate (Robitussin W/Codeine) 10 ml PO Q6 PRN PRN Reason: Cough Last Admin: 08/23/17 12:43 Dose: 10 ml Ibuprofen (Motrin Tab) 800 mg PO Q8 [facility] Last Admin: 08/23/17 09:34 Dose: 800 mg Lidocaine (Lidoderm) 1 ea TD DAILY [facility] Last Admin: 08/23/17 09:36 Dose: 1 ea [id number] Ethyl Esters (Lovaza) 1 gm PO BID [facility] Last Admin: 08/23/17 09:35 Dose: 1 gm Pantoprazole Sodium (Protonix Ec Tab) 40 mg PO DAILY [facility] Last Admin: 08/23/17 09:37 Dose: 40 mg Pregabalin (Lyrica) 150 mg PO BID [facility] Last Admin: 08/23/17 09:41 Dose: 150 mg Tiotropium [place] (Spiriva) 18 mcg IH DAILY [facility] Last Admin: 08/23/17 09:33 Dose: 18 mcg Results - Vital Signs Recent Vital Signs: Last Vital Signs Temp 97.8 F 08/23/17 13:00 Pulse 89 08/23/17 13:00 Resp 20 08/23/17 13:00 BP 112/68 08/23/17 13:00 Pulse Ox 95 08/23/17 13:00 - Labs Result Diagrams: 08/21/17 16:35 08/21/17 16:35 Labs: Laboratory Results - last 24 hr 08/22/17 08/22/17 08/22/17 13:07 13:07 13:07 POC Glucose (mg/dL) RPR Nonreactive Lyme Disease Screen <0.90 EBV Capsid Ag IgG Ab EBV Capsid Ag IgM Ab EBV Nuclear Antigen Ab EBV Interpretation Hepatitis A IgM Ab Negative Hep Bs Antigen Negative Hep B Core IgM Ab Negative Hepatitis C Antibody Negative 08/22/17 08/22/17 13:07 20:40 POC Glucose (mg/dL) 131 H RPR Lyme Disease Screen EBV Capsid Ag IgG Ab >750.00 H EBV Capsid Ag IgM Ab <36.00 EBV Nuclear Antigen Ab 97.40 H EBV Interpretation See note Hepatitis A IgM Ab Hep Bs Antigen Hep B Core IgM Ab Hepatitis C Antibody Assessment & Plan (1) Acute chest pain Status: Acute (2) Anxiety Status: Acute (3) Costochondral chest pain Status: Acute Priority: High (4) Cough Status: Acute Priority: High (5) Myalgia Status: Acute
--- NOTE | 2017-08-23 16:38 | CP.PCM.PN ---
Subjective - Date & Time of Evaluation Date of Evaluation: 08/23/17 Time of Evaluation: 16:38 Objective - Vital Signs/Intake and Output Vital Signs (last 24 hours): Temp Pulse Resp BP Pulse Ox 97.8 F 89 20 112/68 95 08/23/17 13:00 08/23/17 13:00 08/23/17 13:00 08/23/17 13:00 08/23/17 13:00 - Medications Medications: Current Medications Albuterol (Ventolin Hfa 90 Mcg/Actuation (8 G)) 2 puff IH Q4H PRN PRN Reason: Shortness of Breath Last Admin: 08/22/17 22:29 Dose: 2 puff Albuterol/Ipratropium (Duoneb 3 Mg/0.5 Mg (3 Ml) Ud) 3 ml INH RQ6 [facility] Last Admin: 08/23/17 13:08 Dose: 3 ml Amlodipine Besylate (Norvasc) 2.5 mg PO DAILY [facility] Last Admin: 08/23/17 09:36 Dose: 2.5 mg Aspirin (Ecotrin) 81 mg PO DAILY [facility] Last Admin: 08/23/17 09:36 Dose: 81 mg Calcium/Vitamin D (Oyster Shell Calcium/Vitamin D 500 Mg-200 Iu) 1 tab PO BID [facility] Last Admin: 08/23/17 09:37 Dose: 1 tab Clonazepam (Klonopin) 0.5 mg PO BID [facility] Last Admin: 08/23/17 09:41 Dose: 0.5 mg Dexamethasone (Decadron) 4 mg PO Q12 [facility] Last Admin: 08/23/17 09:35 Dose: 4 mg Duloxetine HCl (Cymbalta) 30 mg PO DAILY [facility] Last Admin: 08/23/17 09:36 Dose: 30 mg Enoxaparin Sodium (Lovenox) 40 mg SC DAILY [facility] PRN Reason: Protocol Last Admin: 08/23/17 09:33 Dose: 40 mg Ergocalciferol (Drisdol 50,000 Intl Units Cap) 1 cap PO QWK [facility] Guaifenesin/Codeine Phosphate (Robitussin W/Codeine) 10 ml PO Q6 PRN PRN Reason: Cough Last Admin: 08/23/17 12:43 Dose: 10 ml Ibuprofen (Motrin Tab) 800 mg PO Q8 [facility] Last Admin: 08/23/17 09:34 Dose: 800 mg Lidocaine (Lidoderm) 1 ea TD DAILY [facility] Last Admin: 08/23/17 09:36 Dose: 1 ea [id number] Ethyl Esters (Lovaza) 1 gm PO BID [facility] Last Admin: 08/23/17 09:35 Dose: 1 gm Pantoprazole Sodium (Protonix Ec Tab) 40 mg PO DAILY [facility] Last Admin: 08/23/17 09:37 Dose: 40 mg Pregabalin (Lyrica) 150 mg PO BID [facility] Last Admin: 08/23/17 09:41 Dose: 150 mg Tiotropium [place] (Spiriva) 18 mcg IH DAILY [facility] Last Admin: 08/23/17 09:33 Dose: 18 mcg - Labs Labs: 08/21/17 16:35 08/21/17 16:35 PT 11.9 Seconds (9.8-13.1) 08/21/17 16:35 INR 1.1 (0.9-1.2) 08/21/17 16:35 APTT 25.2 Seconds (25.6-37.1) L 08/21/17 16:35 - Constitutional Appears: Well - Head Exam Head Exam: ATRAUMATIC, NORMAL INSPECTION, NORMOCEPHALIC - Eye Exam Eye Exam: EOMI, Normal appearance, PERRL Pupil Exam: NORMAL ACCOMODATION, PERRL - ENT Exam ENT Exam: Mucous Membranes Moist, Normal Exam - Neck Exam Neck Exam: Full ROM, Normal Inspection. absent: Lymphadenopathy - Respiratory Exam Respiratory Exam: Clear to Ausculation Bilateral, NORMAL BREATHING PATTERN - Cardiovascular Exam Cardiovascular Exam: REGULAR RHYTHM, +S1, +S2. absent: Murmur - GI/Abdominal Exam GI & Abdominal Exam: Soft, Normal Bowel Sounds. absent: Tenderness - Rectal Exam Rectal Exam: NORMAL INSPECTION - Exam Exam: Circumcision, NORMAL INSPECTION External exam: NORMAL EXTERNAL EXAM Speculum exam: NORMAL SPECULUM EXAM Bimanual exam: NORMAL BIMANUAL EXAM - Extremities Exam Extremities Exam: Full ROM, Normal Capillary Refill, Normal Inspection. absent : Joint Swelling, Pedal Edema - Back Exam Back Exam: NORMAL INSPECTION - Neurological Exam Neurological Exam: Alert, Awake, CN II-XII Intact, Normal Gait, Oriented x3 - Psychiatric Exam Psychiatric exam: Normal Affect, Normal Mood - Skin Skin Exam: Dry, Intact, Normal Color, Warm Assessment and Plan (1) Acute chest pain Status: Acute (2) Anxiety Status: Acute (3) Costochondral chest pain Status: Acute (4) Cough Status: Acute (5) Myalgia Status: Acute
[2017-08-23 16:58] VITALS: BP 120/74; PULSE 86; TEMP 98.3; O2SAT 98
--- NOTE | 2017-08-23 17:35 | CP.PCM.DIS ---
Provider - Provider Date of Admission: 08/21/17 19:34 Attending physician: Nasim Anne MD Time Spent in preparation of Discharge (in minutes): 30 Diagnosis - Discharge Diagnosis (1) Costochondral chest pain Status: Acute Priority: High (2) Anxiety Status: Acute (3) Myalgia Status: Acute (4) Myalgia Status: Acute (5) Chest pain Status: Acute Hospital Course - Lab Results Lab Results: Most Recent Lab Values WBC 8.6 K/uL (4.8-10.8) 08/21/17 16:35 RBC 4.30 Mil/uL (4.40-5.90) L 08/21/17 16:35 Hgb 13.9 g/dL (12.0-18.0) 08/21/17 16:35 Hct 37.8 % (35.0-51.0) 08/21/17 16:35 MCV 87.9 fl (80.0-94.0) 08/21/17 16:35 MCH 32.3 pg (27.0-31.0) H 08/21/17 16:35 MCHC 36.8 g/dL (33.0-37.0) 08/21/17 16:35 RDW 19.0 % (11.5-14.5) H 08/21/17 16:35 Plt Count 229 K/uL (130-400) 08/21/17 16:35 MPV 9.3 fl (7.2-11.7) 08/21/17 16:35 Neut % (Auto) 58.6 % (50.0-75.0) 08/21/17 16:35 Lymph % (Auto) 28.0 % (20.0-40.0) 08/21/17 16:35 [place] % (Auto) 9.6 % (0.0-10.0) 08/21/17 16:35 Eos % (Auto) 2.8 % (0.0-4.0) 08/21/17 16:35 Baso % (Auto) 1.0 % (0.0-2.0) 08/21/17 16:35 Neut # (Auto) 5.0 K/uL (1.8-7.0) 08/21/17 16:35 Lymph # (Auto) 2.4 K/uL (1.0-4.3) 08/21/17 16:35 [place] # (Auto) 0.8 K/uL (0.0-0.8) 08/21/17 16:35 Eos # (Auto) 0.2 K/uL (0.0-0.7) 08/21/17 16:35 Baso # (Auto) 0.1 K/uL (0.0-0.2) 08/21/17 16:35 ESR 15 mm/hr (0-15) 08/22/17 13:07 PT 11.9 Seconds (9.8-13.1) 08/21/17 16:35 INR 1.1 (0.9-1.2) 08/21/17 16:35 APTT 25.2 Seconds (25.6-37.1) L 08/21/17 16:35 Sodium 141 mmol/l (132-148) 08/21/17 16:35 Potassium 4.1 MMOL/L (3.6-5.0) 08/21/17 16:35 Chloride 107 mmol/L (98-107) 08/21/17 16:35 Carbon Dioxide 21 mmol/L (22-30) L 08/21/17 16:35 Anion Gap 17 (10-20) 08/21/17 16:35 BUN 18 mg/dl (9-20) 08/21/17 16:35 Creatinine 1.0 mg/dl (0.8-1.5) 08/21/17 16:35 Est GFR ( Amer) > 60 08/21/17 16:35 Est GFR (Non-Af Amer) > 60 08/21/17 16:35 POC Glucose (mg/dL) 131 mg/dL (65-110) H 08/22/17 20:40 Random Glucose 82 mg/dL (75-110) 08/21/17 16:35 Calcium 8.8 mg/dL (8.4-10.2) 08/21/17 16:35 Total Bilirubin 1.8 mg/dl (0.2-1.3) H 08/21/17 16:35 AST 35 U/L (17-59) 08/21/17 16:35 ALT 32 U/L (21-72) 08/21/17 16:35 Alkaline Phosphatase 83 U/L (38-126) 08/22/17 13:07 Total Creatine Kinase 102 U/L (55-170) 08/22/17 13:07 Troponin I < 0.0120 ng/mL (0.00-0.120) 08/22/17 12:00 Total Protein 7.9 G/DL (6.3-8.2) 08/21/17 16:35 Albumin 4.2 g/dL (3.5-5.0) 08/21/17 16:35 Globulin 3.7 gm/dL (2.2-3.9) 08/21/17 16:35 Albumin/Globulin Ratio 1.1 (1.0-2.1) 08/21/17 16:35 Prostate Specific Ag 0.385 ng/ML (0.00-4.0) 08/22/17 13:07 TSH 3rd Generation 1.10 mIU/ML (0.46-4.68) 08/22/17 13:07 Urine Color Yellow (YELLOW) 08/22/17 15:06 Urine Clarity Clear (Clear) 08/22/17 15:06 Urine pH 5.0 (5.0-8.0) 08/22/17 15:06 Ur Specific [place] 1.030 (1.003-1.030) 08/22/17 15:06 Urine Protein Negative mg/dL (NEGATIVE) 08/22/17 15:06 Urine Glucose (UA) Neg mg/dL (Normal) 08/22/17 15:06 Urine Ketones Negative mg/dL (NEGATIVE) 08/22/17 15:06 Urine Blood Negative (NEGATIVE) 08/22/17 15:06 Urine Nitrate Negative (NEGATIVE) 08/22/17 15:06 Urine Bilirubin Negative (NEGATIVE) 08/22/17 15:06 Urine Urobilinogen 2.0 mg/dL (0.2-1.0) 08/22/17 15:06 Ur Leukocyte Esterase Neg Brian/uL (Negative) 08/22/17 15:06 Urine RBC (Auto) < 1 /hpf (0-3) 08/22/17 15:06 Urine Microscopic WBC 1 /hpf (0-5) 08/22/17 15:06 Ur Squamous Epith Cells < 1 /hpf (0-5) 08/22/17 15:06 RPR Nonreactive (NONREACTIVE) 08/22/17 13:07 Lyme Disease Screen <0.90 index 08/22/17 13:07 EBV Capsid Ag IgG Ab >750.00 U/mL H 08/22/17 13:07 EBV Capsid Ag IgM Ab <36.00 U/mL 08/22/17 13:07 EBV Nuclear Antigen Ab 97.40 U/mL H 08/22/17 13:07 EBV Interpretation See note 08/22/17 13:07 Hepatitis A IgM Ab Negative (NEGATIVE) 08/22/17 13:07 Hep Bs Antigen Negative (NEGATIVE) 08/22/17 13:07 Hep B Core IgM Ab Negative (NEGATIVE) 08/22/17 13:07 Hepatitis C Antibody Negative (NEGATIVE) 08/22/17 13:07 HIV-1 Ab Rapid Screen Non reactive (NON REAC) 08/22/17 13:07 - Hospital Course Hospital Course: 46 yo ,m, with hx of back surgery with chronic pain on lyrica. Patient c/o severe precordial pain. He recently had a comprehensive cardiac w/u. Few days before this admission he was treated for viral syndrome and bronchitis. His condition did not improve and he was transfer to ER for further evaluation On evaluation pt with reproducible chest pain and persistent cough. The cardiac w/ u was negative the patient well responded to rx. Will follow as OP. Discharge Exam - Head Exam Head Exam: ATRAUMATIC, NORMAL INSPECTION, NORMOCEPHALIC - Eye Exam Eye Exam: Normal appearance, PERRL Pupil Exam: NORMAL ACCOMODATION - ENT Exam ENT Exam: Mucous Membranes Dry - Neck Exam Neck exam: Full Rom - Respiratory Exam Respiratory Exam: Clear to PA & Lateral - Cardiovascular Exam Cardiovascular Exam: REGULAR RHYTHM, +S1, +S2 - GI/Abdominal Exam GI & Abdominal Exam: Normal Bowel Sounds - Extremities Exam Extremities exam: normal inspection - Neurological Exam Neurological exam: Alert, CN II-XII Intact, Normal Gait, Oriented x3, Reflexes Normal - Psychiatric Exam Psychiatric exam: Normal Affect - Skin Skin Exam: Normal Color Discharge Plan - Follow Up Plan Condition: FAIR Disposition: HOME/ ROUTINE
--- NOTE | 2017-08-23 17:50 | US ---
HISTORY: GB stones COMPARISON: None. TECHNIQUE: Sonographic evaluation of the abdomen. FINDINGS: LIVER: Measures 14.4 cm. Normal echogenicity of the liver parenchyma. No mass. No intrahepatic bile duct dilatation. GALLBLADDER: Not identified status post cholecystectomy. COMMON BILE DUCT: Measures 4.0 mm. No stones. No dilatation. PANCREAS: Not identified due to extensive overlying bowel gas. RIGHT KIDNEY: Measures 10.4cm. Normal echogenicity. No calculus, mass, or hydronephrosis. LEFT KIDNEY: Measures 11.8cm. No hydronephrosis, urolithiasis or solid parenchymal mass identified. A a simple cyst identified at the midpole left kidney measure 1.5 x 1.8 x 1.1 cm. SPLEEN: Normal in size and contour. No mass. AORTA: No aneurysmal dilatation. IVC: Unremarkable. OTHER FINDINGS: None. IMPRESSION: Pancreas is completely obscured by overlying bowel gas. Prior cholecystectomy. Remainder of the examination appears unremarkable.
[2017-08-26] MEDS ORDERED: Ergocalciferol 50,000 Intl Units Cap PO SCH (09:00)
== END 2017-08-23 18:16 | disposition home or self-care (01) ==
LOC: H.ER 15:01 → H.ERHOLD 19:34 → H.TEL 22:55
PROVIDERS: ADMIT Internal Medicine; ATTEND Internal Medicine
DX: R07.1 Chest pain on breathing (principal); F41.9 Anxiety disorder, unspecified; E78.5 Hyperlipidemia, unspecified; E78.00 Pure hypercholesterolemia, unspecified; G43.909 Migraine, unspecified, not intractable, without status migrainosus; Z87.891 Personal history of nicotine dependence; G89.29 Other chronic pain; R05 Cough; G62.9 Polyneuropathy, unspecified; Z88.5 Allergy status to narcotic agent
CPT/HCPCS: 36415; 71046; 71250; 76700; 80053; 80074; 81003; 82550; 82948; 83520; 84075; 84153; 84443; 84484; 85025; 85610; 85651; 85730; 86039; 86592; 86618; 86664; 86665; 87390; 93005; 94150; 94640; 96372; 96374; 99285; G0378; J1650; J1885; J8540